=== PATIENT | male | born 1950 | race Native Hawaiian/Other Pacific Islander ===

== ENCOUNTER 2017-01-14 13:43 | Outpatient (CLI) | payer BC | END 2017-01-14 14:45 | disposition home or self-care (01) | LOC: RAD 13:43 | DX: M25.561 Pain in right knee (principal) ==

== ENCOUNTER 2017-08-18 10:29 | Outpatient (CLI) | payer BC | END 2017-08-18 19:49 | disposition home or self-care (01) | LOC: RAD 10:29 | DX: Z01.818 Encounter for other preprocedural examination (principal) ==

== ENCOUNTER 2021-03-27 11:51 | Outpatient (CLI) | payer OTHER, MEDICARE | END 2021-03-27 18:54 | disposition home or self-care (01) | LOC: RAD 11:51 | PROVIDERS: ATTEND Nurse Practitioner | DX: J20.8 Acute bronchitis due to other specified organisms (principal) ==

== ENCOUNTER 2021-10-06 11:25 | Emergency (ER) | payer OTHER, MEDICARE ==
[~2021-10-06] VITALS: Ht 180.3 cm; Wt 122.5 kg
[2021-10-06 11:41] VITALS: TEMP 97
[2021-10-06] MEDS ORDERED: DOXYCYC MONO100 MG PO (12:12)
[2021-10-06 12:22] VITALS: BP 152/74
== END 2021-10-06 12:33 | disposition home or self-care (01) ==
LOC: ED 11:25
DX: T16.2XXA Foreign body in left ear, initial encounter (principal); W45.8XXA Other foreign body or object entering through skin, initial encounter; Y92.89 Other specified places as the place of occurrence of the external cause
CPT/HCPCS: 90715; 99283